=== PATIENT | female | born 1980 | race Caucasian/White ===

== ENCOUNTER 2017-01-24 14:44 | Emergency (ER) | payer OTHER ==
--- NOTE | ~2017-01-24 | ER ---
PATIENT'S NAME: REAGAN ELLIS [facility] AGE: 36 Y [address] ROOM: [place] [address] LOCATION: [facility] ADMIT DATE: 01/24/2017 ER/Outpatient Report DISCHARGE DATE: 01/24/2017 FAMILY PHYSICIAN: Shanti Peralta APRN ATTENDING PHYSICIAN: Radha Mcnulty Time of Arrival: 1455 hours. Time of Evaluation: 1455 hours. CHIEF COMPLAINT: Right flank pain. HISTORY OF PRESENT ILLNESS: The patient states approximately 4 days ago she began having right-sided flank pain. States that goes from the flank around into the lower abdominal area and has just some generalized discomfort. Reports she had a kidney stone in May 2016, and the pain is similar to what she had then. She does have an appointment to see Dr. Ely, urologist, on 01/29/2017, but the pain became much worse today. She did have some Doon at home, and she took 2 tabs and it has calmed things down but not 100%. She has had some chills, fever of 100 at home. Nauseated, but no vomiting. Last bowel movement was yesterday. ALLERGIES: SULFA. CURRENT MEDICATIONS: On her chart and reviewed by me. PAST MEDICAL HISTORY: Atrial fibrillation, SVT, kidney stones, depression. [employer]-ENFORCEMENT SAFETY OFFICER HISTORY: Last menstrual period was 2 to 3 weeks ago. SOCIAL HISTORY: She smokes a pack per day, off and on for the past 10 to 15 years. Denies use of drugs. Drinks alcohol on a social basis. REVIEW OF SYSTEMS: All negative other than those mentioned in the HPI. PHYSICAL EXAMINATION: VITAL SIGNS: She weighed 117.9 kilograms; blood pressure is 130/80; pulse is 77; respirations 16; temperature of 96.8, tympanic; O2 saturations 96% on room air. PATIENT'S NAME: REAGAN ELLIS [facility] AGE: 36 Y [address] ROOM: [place] [address] LOCATION: [facility] ADMIT DATE: 01/24/2017 ER/Outpatient Report DISCHARGE DATE: 01/24/2017 FAMILY PHYSICIAN: Shanti Peralta APRN ATTENDING PHYSICIAN: Radha Mcnulty GENERAL: She is awake, alert, and oriented x4. SKIN: [place], warm, and dry. RESPIRATIONS: Even and nonlabored. LUNGS: Lung sounds are clear throughout. HEART: Regular rate and rhythm. ABDOMEN: Soft, nondistended. Bowel sounds are present. She is tender in the right flank area to palpation. EMERGENCY ROOM COURSE: Saline lock was initiated. Fluids of normal saline were started at a wide- open rate. She was given Toradol 15 mg IV. LABORATORY DATA AND X-RAYS: Lab work was drawn. CBC is within normal limits. Chem panel is within normal limits. BUN is 15 with a creatinine of 0.8. Clean-catch UA did show 25 leukocytes, negative nitrites, 250 of blood. Micro showed 50 to 100 red blood cells, rare bacteria. CT scan stone protocol was obtained. Radiologist reports that the patient has a 12 mm stone in the renal pelvis, no obstruction is seen. IMPRESSION: Renal calculi. PLAN: Home, rest, fluids. Tylenol or ibuprofen as needed. Prescription was written for [facility] [facility]. She is to keep her scheduled appointment on Sunday, return to the ER as needed or contact her primary provider. She verbalized understanding. BRIAN YANG APRN FOR MD [facility]O BLACK/rosita /[id number] d: 01/24/174 t: 01/27/17 1500, OUTPATIENT REPORT
[2017-01-24 15:22] LABS: BILIRUBIN URINE NEGATIVE (NEGATIVE); BLOOD URINE 250 /UL (NEGATIVE); COLOR URINE YELLOW (YELLOW); GLUCOSE URINE NEGATIVE (NEGATIVE); KETONE URINE NEGATIVE (NEGATIVE); LEUKOCYTES URINE 25 /UL (NEGATIVE); NITRITE URINE NEGATIVE (NEGATIVE); PROTEIN URINE 30 mg/dL (NEGATIVE); TURBIDITY URINE 1+ (CLEAR); UROBILINOGEN URINE NORMAL (NORMAL)
[2017-01-24 15:31] LABS: AMORPHOUS URINE 1+ (NEGATIVE); BACTERIA URINE RARE (NEGATIVE); MUCUS URINE 2+ (NEGATIVE); RBC URINE 50-100 #/HPF (NEGATIVE)
[2017-01-24 15:33] LABS: BASOPHIL # 0.1 K/uL (0.0-0.2); BASOPHIL % 0.7 %; EOSINOPHIL # 0.3 K/uL (0.0-0.5); HEMATOCRIT 40.3 % (33.0-46.0); HEMOGLOBIN 13.8 g/dL (11.0-15.0); IMMATURE GRANULOCYTE % 0.3 %; LYMPHOCYTE # 1.8 K/uL (0.8-4.0); LYMPHOCYTE % 25.4 %; MCH 28.4 pg (27.0-34.0); MCHC 34.2 gm/dL (32.0-36.5); MCV 82.9 fl (83.0-98.0); MONOCYTE # 0.6 K/uL (0.0-1.0); NEUTROPHIL # (ANC) 4.2 K/uL (1.8-7.8); NEUTROPHIL % 60.6 %; NRBC % 0 /100WBC (0-0.00); PLATELET COUNT 353 K/uL (150-450); RBC 4.86 M/uL (3.50-5.50); RDW-CV 13.7 % (11.9-14.6)
[2017-01-24 15:50] LABS: ALBUMIN 3.5 gm/dL (3.5-5.0); ALK PHOS 77 IU/L (33-138); ALT 51 IU/L (12-78); ANION GAP 11.8 (10.0-19.0); AST 42 IU/L (10-40); BLOOD UREA NITROGEN 15 mg/dL (6-24); CALCIUM 8.9 mg/dL (8.5-10.5); CHLORIDE 106 mMol/L (96-110); CO2 23 mMol/L (22-32); CREATININE 0.8 mg/dL (0.5-1.1); POTASSIUM 3.8 mMol/L (3.7-5.1); SODIUM 137 mMol/L (135-145); TOTAL BILIRUBIN 0.4 mg/dL (0.0-1.5); TOTAL PROTEIN 7.3 g/dL (6.0-8.4)
== END 2017-01-24 16:43 | disposition disaster alternative care site (69) ==
LOC: GMED 14:44
PROVIDERS: Nurse Practitioner Family
DX: N20.0 Calculus of kidney (principal); I48.91 Unspecified atrial fibrillation; F32.9 Major depressive disorder, single episode, unspecified; F17.210 Nicotine dependence, cigarettes, uncomplicated; Z79.891 Long term (current) use of opiate analgesic; Z79.899 Other long term (current) drug therapy; Z88.2 Allergy status to sulfonamides
CPT/HCPCS: J1885; J7030